=== PATIENT | female | born 1970 ===

== ENCOUNTER → 2022-08-31 07:39 | Outpatient (CLI) | payer OTHER, SELFPAY ==
--- NOTE | ~2022-08-31 | MR_ITS ---
EXAMINATION: MR shoulder RT wo con DATE: 08/31/2022 08:17 INDICATION: Chronic right shoulder pain TECHNIQUE: Magnetic resonance imaging (MRI) of the right shoulder was performed without intravenous c ontrast. Sequences included axial PD-weighted FS FSE, coronal oblique PD-weighted FS FSE, coronal obl ique T2-weighted FS FSE, sagittal PD-weighted FS FSE, and sagittal T1-weighted SE. COMPARISON: None. FINDINGS: Coracoacromial arch: The acromion undersurface is curved in morphology (type II). The coracoacromial ligament is normal. M ild acromioclavicular osteoarthritis. Rotator cuff: Mild infraspinatus and mild to moderate supraspinatus tendinopathy. There is a small partial-thicknes s intrasubstance tear at the conjoined portion of the supraspinatus and infraspinatus tendons which m easures approximately 2-3 mm AP and involving approximately one third of the tendon thickness. The te res minor tendon is normal. Mild subscapularis tendinopathy without tear. Normal rotator cuff muscle bulk and signal. Biceps tendon, glenoid labrum and glenohumeral cartilage: Long head of the biceps tendon is normal. There is a superior, anterior to posterior tear of the cory oid labrum (SLAP tear) which extends from the 1:00 position anteriorly to the 10:00 position posterio rly. Glenohumeral cartilage is normal. Fluid: Physiologic amount of fluid in the glenohumeral joint and biceps tendon sheath. No loose osteochondr al bodies. No abnormal increased fluid signal in the subacromial/subdeltoid bursa to suggest bursitis . Bones: Bone alignment is normal. No fracture or pathologic marrow replacing process. IMPRESSION: 1. SLAP tear at the superior glenoid labrum. 2. Tendinopathy and very small partial-thickness intrasubstance tear at the conjoined portion of the supraspinatus and infraspinatus tendons. Reviewed, dictated and finalized at location A. IMPRESSION: 1. SLAP tear at the superior glenoid labrum. 2. Tendinopathy and very small partial-thickness intrasubstance tear at the con joined portion of the supraspinatus and infraspinatus tendons.
== END ==
PROVIDERS: PCP Orthopaedic Surgery; Visit Provider Orthopaedic Surgery
DX: S43.431A Superior glenoid labrum lesion of right shoulder, initial encounter (principal); X58.XXXA Exposure to other specified factors, initial encounter
CPT/HCPCS: 73221